=== PATIENT | male | born 1960 | race Caucasian/White ===

== ENCOUNTER → 2017-07-01 | Outpatient (CLI) | payer MEDICARE ==
[2015-10-15 10:04] VITALS: BMI 30.1
[~2017-07-01] MED LIST: ADV100/50 INH; ADV230RPT INH; ALB17R INH; ALB6.7R INH; AMLO-101 PO; AMLO2.5T74 PO; AMOX-559 PO; ASPI-715 PO; ASPI-757 PO; ASPI81TA94 PO; ATEN-1 PO; ATENOLOL PO; ATOR20TA22 PO; BUDE10.2 INH; BUPR1PAT9 TD; CARB-71 PO; CEF300 PO; CHOL10005 PO; CLOP75TA PO; CLOP75TA43 PO; CYCL-343 PO; CYCL10TA29 PO; DIAZ-308 PO; DICL-192 PO; DICL-195 PO; DOCU-416 PO; DULERAPT INH; FLUINH INH; FLUT12HF2 INH; FOLI-68 PO; HYDR-389 PO; HYDR-4240 PO; HYDR-4309 PO; HYDR473S4 PO; ICOS1CAP PO; IPRA3AMP21 IH; IPRA3AMP36 IH; IPRA4AER IH; LEV125 PO; LISI-362 PO; LISI-374 PO; LORA-629 PO; LORA-630 PO; MESA800T3 PO; METR1COM3 TP; MOM PO; MON10 PO; MONT10TA PO; MULT-1372 PO; NAPR-1043 PO; OMEG-11 PO; OMEP40CA45 PO; ONDA4TAB97 PO; ONDA8TAB94 PO; OXYC5CAP21 PO; PAN20 PO; PANT40TA63 PO; PER PO; PIMT TP; PRAM0.1225 PO; PRAM0.5T27 PO; PRAM0.7512 PO; PRE10 PO; PRE20 PO; PRED-1 PO; PREG25 PO; RANI-320 PO; RASA1TAB3 PO; SERT-181 PO; SERT25TA90 PO; SIL20 PO; STOOL SOFTNER; SULF-198 PO; SULF500T42 PO; TADA5TAB7 PO; TAMS0.4C70 PO; TEST200V IM; TRAM100T22 PO; TROS60CA PO; VENTOLIN IH; [UNRECOGNIZED DRUG - CODE] INH; [UNRECOGNIZED DRUG - CODE] PO; [UNRECOGNIZED DRUG - CODE] PO; [UNRECOGNIZED DRUG - OTHER] PO
== END ==
LOC: LAB 16:04
PROVIDERS: ATTEND Specialist
DX: N40.1 Benign prostatic hyperplasia with lower urinary tract symptoms (principal); E29.1 Testicular hypofunction
CPT/HCPCS: 36415; 84153

== ENCOUNTER → 2017-12-19 | Outpatient (CLI) | payer MEDICARE ==
[2015-10-15 10:04] VITALS: BMI 30.1
[~2017-12-19] MED LIST changes: -TRAM100T22 PO; +TRAM100T8 PO
--- NOTE | 2017-12-19 09:17 | RADIOLOGY IMAGING REPORT ---
FACILITY: [facility] PATIENT NAME: Julio Mcconnell : 1960 MR: [id number] V: [id number] EXAM DATE: ORDERING PHYSICIAN: [facility] TECHNOLOGIST: Location: [facility] Patient: Julio Mcconnell : 1960 Visit/Account:[id number] Date of Sevice: 12/19/2017 C SPINE W/O CONTRAST History: Numbness and weakness left arm. Previous neck injuries. COMPARISON STUDIES: none TECHNIQUE: Multi-planar, multi-sequence cervical spine MRI was performed without intravenous contras t administration. FINDINGS: Paraspinal soft tissues negative. Vertebral bodies have normal height. Marrow signal intensity appear s benign. 3 mm degenerative retrolisthesis C6 on C7, 2 mm retrolisthesis C5 on C6. Desiccation modera tely severe loss of disc space height C5-C6 C6-C7, moderate at C4-C5. Cervical and visualized thoraci c cord have normal signal intensity. C2-C3: Negative. C3-C4: Negative. C4-C5: Small central disc protrusion without significant narrowing of the central canal or neural for meredith. C5-C6: Broad-based disc bulge moderately narrows the central canal. There is severe right and moderat randy severe left foraminal stenosis. C6-C7: Broad-based disc bulge moderately narrows the central canal. There is severe right and moderat randy severe left foraminal stenosis. C7-T1: Negative. IMPRESSION: Multilevel spondylosis resulting in moderate central canal and moderate to severe foramin al stenosis at C5-C6 and C6-C7 with milder degenerative changes present at other levels as described above. Report Dictated By: Jeremiah Avalos MD at 12/19/2017 9:08 AM Report E-Signed By: Jeremiah Avalos MD at 12/19/2017 9:11 AM WSN:[email or web address]
== END ==
LOC: MRI 06:58
DX: M47.892 Other spondylosis, cervical region (principal); M48.02 Spinal stenosis, cervical region
CPT/HCPCS: 72141

== ENCOUNTER → 2018-03-21 | Outpatient (REF) | payer MEDICARE ==
[2015-10-15 10:04] VITALS: BMI 30.1
[~2018-03-21] MED LIST changes: +AMLO2.5T76 PO; +IPRA3AMP10 IH; -IPRA3AMP21 IH
== END ==
LOC: ZZSENDIN 16:10
PROVIDERS: ATTEND Family Medicine
DX: Z01.812 Encounter for preprocedural laboratory examination (principal)
CPT/HCPCS: 81001

== ENCOUNTER 2018-04-11 00:09 | Inpatient (IN) | payer MEDICARE ==
[2018-04-10 13:53] LABS: INR 0.95
[~2018-04-11] VITALS: Ht 177.8 cm; Wt 112.0 kg
[~2018-04-11 00:09] MED LIST changes: +ACET500T68 PO; +ATOR40TA24 PO
[2018-04-11] MEDS ORDERED: FAMOTIDINE 20 MG TAB PO ONE (05:50)
[2018-04-11] MEDS ORDERED: ceFAZolin(*) 2GM/D5W 50ML 50 ML IVPB ONE (06:15)
[2018-04-11] MEDS ORDERED: PREGABALIN 150 MG CAPSULE PO ONE (06:15)
[2018-04-11] MEDS ORDERED: CELECOXIB 200 MG CAP PO ONE (06:15)
[2018-04-11] MEDS ORDERED: ACETAMINOPHEN 500 MG TAB PO ONE (06:15)
[2018-04-11] MEDS ORDERED: cloNIDine EPIDUR INJ 100MCG/ML 40 MCG, ROPIVACAINE 0.5% 20 ML VIAL 25 ML, EPINEPHrine H... INJ ONE (06:15)
[2018-04-11] MEDS ORDERED: MIDAZOLAM 2 MG/2 ML VIAL IVP PRN (06:15)
[2018-04-11] MEDS ORDERED: NORMOSOL R SOLN(*) 1000 ML BAG 1,000 ML IV PRN ×2 (06:15→10:00)
[2018-04-11] MEDS ORDERED: LIDOCAINE/SOD BICARB 8.4% SYR ID ONE (06:15)
[2018-04-11] MEDS ORDERED: TRANEXAMIC AC 1000 MG/10ML SDV 1,000 MG in DEXTROSE 5% 50 ML BAG 50 ML IV ONE (06:15)
[2018-04-11 06:21] VITALS: BP 137/87
[2018-04-11] MEDS ORDERED: ALBUTEROL/IPRATROPIUM 3 ML NEB ONE (06:40)
[2018-04-11] MEDS ORDERED: PROPOFOL EMUL(*) 10MG/ML 20 ML 20 ML ONE (06:50)
[2018-04-11] MEDS ORDERED: ONDANSETRON 4 MG/2 ML VIAL ONE (06:50)
[2018-04-11] MEDS ORDERED: LIDOCAINE MPF 1% 5 ML VIAL ONE (06:50)
[2018-04-11] MEDS ORDERED: DEXAMETHASONE SOD 4 MG/ML VIAL ONE (06:50)
[2018-04-11] MEDS ORDERED: fentaNYL CITR 100 MCG/2 ML AMP ONE ×2 (06:50→09:59)
[2018-04-11] MEDS ORDERED: KETAMINE HCL-NS 50 MG/5 ML SYR ONE (06:54)
--- NOTE | 2018-04-11 07:43 | LEVENE H&P ---
DATE OF ADMISSION: April 11, 2018 IDENTIFICATION/CHIEF COMPLAINT The patient is a 57-year-old gentleman with a chief complaint of right knee pain. HISTORY OF PRESENT ILLNESS Patient has a longstanding history of knee arthritis progressively painful and debilitating, refractory to conservative care. Surgery is indicated to relieve symptoms after failure of nonoperative measures. PAST MEDICAL HISTORY 1. Coronary artery disease. 2. COPD. 3. Hypertension. 4. History of a spinal clot, no DVT. 5. History of sleep apnea. 6. History of bronchitis pneumonia. PAST SURGICAL HISTORY 1. Contralateral knee replacement. 2. MAST surgery. 3. Minor procedures. CURRENT MEDICATIONS 1. Atorvastatin 40 mg p.o. every day. 2. Levothyroxine 0.125 mg p.o. every day. 3. Aspirin 81 mg daily. 4. Azilect 1 mg p.o. every day. 5. Lisinopril 40 mg p.o. every day. 6. Lyrica 75 mg p.o. every day. 7. Oxygen 3L nightly. 8. Comtan 20 mg p.o. t.i.d. 9. Sinemet 50/200 two tablets p.o. every day. 10. Dulera 200 mcg/5mcg oral inhaler two puffs b.i.d. 11. Pantoprazole 40 mg two tablets p.o. b.i.d. 12. Proventil inhaler. 13. Ranitidine 300 mg at bedtime. 14. Singulair 10 mg p.o. every day. ALLERGIES MOLD, GRASS and COMMON WEEDS. No known drug allergies. FAMILY HISTORY Notable for mother with ovarian cancer and low thyroid, father with stroke and spinal cord thrombosis. SOCIAL HISTORY Negative for tobacco and alcohol use. REVIEW OF SYSTEMS Otherwise negative. PHYSICAL EXAMINATION GENERAL: This is a healthy appearing male. HEENT: Normocephalic, atraumatic. . NECK: Supple. LUNGS: Clear. HEART: Regular rate and rhythm. ABDOMEN: Soft. ORTHOPEDIC EXAMINATION Right knee has an effusion present. He has crepitus. He is stiff with range of motion. Gross stability. Good extension. Function is intact. Calves are nontender. Neurovascular function is intact. Radiographs demonstrate end-stage DJD. ASSESSMENT Right knee end-stage degenerative joint disease, progressively painful and debilitating, refractory to conservative care. PLAN Per patient request, we will proceed with total knee arthroplasty. The nature of this procedure, risks, benefits, the anticipated rehabilitative course were reviewed and all patient's questions were answered. Risks of the procedure include but are not limited to , major medical or anesthetic complication, infection, neurovascular injury, blood transfusion, stiffness, fracture, tendon rupture, instability, implant loosening or migration or failure, persistent or recurrent pain, need for additional surgery and other unforeseen. He understands and wishes to proceed. A signed permit is placed in the chart. No guarantees are given or implied. DAWN
[2018-04-11] MEDS ORDERED: VANCOMYCIN 1 GM VIAL ONE (08:53)
[2018-04-11] MEDS ORDERED: BISACODYL 10 MG SUPP PR PRN (10:00)
[2018-04-11] MEDS ORDERED: FLUSH 10 ML SYR IVP PRN (10:00)
[2018-04-11] MEDS ORDERED: BENZOCAINE/MENTHOL 1 EACH LOZG PO PRN (10:00)
[2018-04-11] MEDS ORDERED: diphenhydrAMINE 25 MG CAP PO PRN (10:00)
[2018-04-11] MEDS ORDERED: DIAZEPAM 5 MG TAB PO PRN (10:00)
[2018-04-11] MEDS ORDERED: PROMETHAZINE 25 MG/ML 1 ML AMP IVP PRN (10:00)
[2018-04-11] MEDS ORDERED: MAGNESIUM HYDROXIDE* 30ML UDCP PO PRN (10:00)
[2018-04-11] MEDS ORDERED: ZOLPIDEM TARTRATE 5 MG TAB PO PRN (10:00)
[2018-04-11] MEDS ORDERED: diphenhydrAMINE 50 MG/ML VIAL IVP PRN (10:00)
[2018-04-11] MEDS ORDERED: ACETAMINOPHEN 325 MG TAB PO PRN (10:00)
--- NOTE | 2018-04-11 10:33 | RADIOLOGY IMAGING REPORT ---
FACILITY: [facility] PATIENT NAME: Julio Mcconnell : 1960 MR: [id number] V: [id number] EXAM DATE: ORDERING PHYSICIAN: JJ VELIZ TECHNOLOGIST: [place] [facility] [place]: Julio Mcconnell : 1960 Visit/Account:[id number] Date of Sevice: 04/11/2018 Exam type: KNEE LIMITED RIGHT History: POST OP R TKA Comparison: None. Findings: Two views of the right knee demonstrate a right knee arthroplasty in good anatomic alignment. Soft t issue gas and skin maritza project over the anterior aspect of this postoperative knee IMPRESSION: 1. Right knee arthroplasty appears in good anatomic alignment Report Dictated By: Belinda Orozco MD at 04/11/2018 10:28 AM Report E-Signed By: Belinda Orozco MD at 04/11/2018 10:29 AM WSN:[email or web address]
[2018-04-11] MEDS ORDERED: TAMSULOSIN HCL 0.4 MG CAP PO ONE (11:45)
[2018-04-11] MEDS ORDERED: ALBUTEROL 8 GM INHALER INH PRN (11:45)
[2018-04-11] MEDS: LEVOTHYROXINE SOD 0.125 MG TAB PO SCH (11:52)
--- NOTE | 2018-04-11 12:08 | Hospitalist Consultation ---
History of Present Illness Requesting Physician Dr. Diana Reason for Consult Medical Management Chief Complaint s/p right total knee replacement History of Present Illness He was admitted s/p right total knee replacement . It is reported the surgery went well and without complication. History Problems: (1) NIKOLE (obstructive sleep apnea) Status: Chronic (2) HTN (hypertension) Status: Chronic (3) BPH (benign prostatic hyperplasia) Status: Chronic (4) Parkinson disease Status: Chronic (5) Parkinsons disease Status: Chronic Home Meds Reported Medications Acetaminophen (TYLENOL EXTRA STRENGTH) 500 Mg Tablet, 500 MG PO TID, TAB 04/04/18 Atorvastatin Calcium (LIPITOR) 40 Mg Tablet, 1 TAB PO HS, TAB 04/04/18 Pregabalin (LYRICA) 25 Mg Cap, 10 MG PO DAILY, CAP 10/07/15 Folic Acid (FOLIC ACID) 1 Mg Tablet, 1 MG PO QDAY, TAB 10/07/15 Testosterone Cypionate (TESTOSTERONE CYPIONATE) 200 Mg/1 Ml Vial, 200 MG IM Q2WK, VIAL 10/07/15 Diclofenac Sodium (DICLOFENAC SODIUM) 75 Mg Tablet.dr, 75 MG PO BID, TAB 10/07/15 Sertraline Hcl (SERTRALINE HCL) 25 Mg Tablet, 100 TAB PO DAILY, TAB 10/07/15 Pramipexole Di-Hcl (MIRAPEX) 0.5 Mg Tablet, 0.5 MG PO 5XD 10/07/15 Entacapone (COMTAN) 200 Mg Tab, 200 MG PO 6XD, TAB 12/05/14 Mometasone/Formoterol (DULERA 200 MCG/5 MCG INHALER) 13 Gm Inh, 2 PUFF INH BID, INH 12/05/14 Icosapent Ethyl (VASCEPA) 1 Gm Capsule, 2 CAP PO BID, CAPSULE 12/05/14 Mesalamine (ASACOL HD) 800 Mg Tablet.dr, 3 TAB PO DAILY 10/22/13 [Ventolin hfa 8 gm ] No Conflict Check, 2 PUFF IH Q2H PRN for respiratory distress 08/20/13 Metronidazole/Skin Cleanser (METROGEL 1% KIT) 1 Each Combo..pkg, 1 EACH TP BID 05/28/13 Pimecrolimus (ELIDEL) 30 Gm Cream..g., 1 RODOLFO TP BID 05/28/13 Levothyroxine Sodium (LEVOTHYROXINE SODIUM) 0.125 Mg Tab, 0.125 MG PO QDAY, TAB 05/28/13 Pantoprazole Sodium (PROTONIX) 40 Mg Tablet.dr, 40 MG PO BID, TAB.SR 05/28/13 Ranitidine Hcl (RANITIDINE HCL) 300 Mg Tablet, 300 MG PO HS 05/28/13 Tadalafil (CIALIS) 5 Mg Tablet, 5 MG PO QDAY 05/28/13 Trospium Chloride (TROSPIUM CHLORIDE) 60 Mg Cap.er.24h, 60 MG PO DAILY 05/28/13 Rasagiline Mesylate (AZILECT) 1 Mg Tablet, 1 MG PO DAILY 05/28/13 Carbidopa/Levodopa (SINEMET CR 50-200 TABLET) 1 Each Tablet.er, 1 EACH PO HS 05/28/13 Carbidopa/Levodopa (SINEMET 25-100 MG TABLET) 1 Each Tablet, 2.5 EACH PO QID 05/28/13 Montelukast Sodium (SINGULAIR) 10 Mg Tablet, 1 TAB PO HS TAKE ONE TABLET BY MOUTH EVERY NIGHT 05/28/13 Lisinopril (LISINOPRIL) 40 Mg Tablet, 40 MG PO QDAY HOLD UNTIL SBP > 140 05/28/13 Discontinued Reported Medications Acetaminophen/Hydrocodone (HYDROCODON-ACETAMINOPH 7.5-325) 1 Each Ea, 1-2 EACH PO Q4-6H PRN for PAIN, #100 EA 10/16/15 Aspirin (ASPIRIN) 325 Mg Tablet, 325 MG PO DAILY, TAB take for one month post op 10/16/15 Cyclobenzaprine Hcl (CYCLOBENZAPRINE HCL) 10 Mg Tablet, 10 MG PO HS PRN for PAIN, #9 TAB 10/07/15 Diazepam (DIAZEPAM) 5 Mg Tablet, 5 MG PO QHS, #5 TAB 12/05/14 Buprenorphine (BUTRANS) 1 Each Patch.tdwk, 1 EACH TD QWEEK 12/05/14 Allergies: Coded Allergies: gluten (Verified Allergy, Mild, 04/04/18) Uncoded Allergies: BERRIES (Allergy, Mild, 01/22/11) Patient History: DVT FATHER FH: heart disease FATHER FH: ovarian cancer MOTHER FH: stroke FATHER Hx Smoking: No Smoking Status: Never Smoker Exposure to Second Hand Smoke?: No Caffeine Intake: Coffee Caffeine/Cups Per Day: 1-2 cups a day Hx Alcohol Use: Yes Hx Substance Use Disorder: No Social Drug Use: Never History of IV Drug Use: No Review of Systems All Systems Reviewed/Normal: Yes, Except as Noted Exam Vital Signs Vital Signs Date Time Temp Pulse Resp B/P (MAP) Pulse Ox O2 Delivery O2 Flow Rate FiO2 04/11/18 11:10 61 20 97 04/11/18 06:43 Room Air 04/11/18 06:21 97.5 137/87 (104) General Appearance: Alert, Awake, No Acute Distress, Afebrile Neuro: No Gross deficits Cardiovascular: Regular Rate and Rhythm Respiratory: No Respiratory Distress, Clear to Auscultation GI: Abd Soft and Non-Tender Psych: Alert & Oriented X3, Appropriate Mood & Affect Assessment and Plan Problems: (1) Status post total right knee replacement Status: Acute Assessment & Plan: He will be placed on Aspirin for DVT prophylaxis. He has no history of DVT or PE. (2) Asthma Status: Chronic Assessment & Plan: He is on chronic treatment with Singulair, albuterol and Dulera inhalers. (3) HTN (hypertension) Status: Chronic Assessment & Plan: He is on chronic treatment with Lisinopril. This has been restarted with hold parameters. (4) Parkinsons disease Status: Chronic Assessment & Plan: He is on chronic treatment with Sinemet. (5) NIKOLE (obstructive sleep apnea) Status: Chronic Assessment & Plan: He is on chronic treatment with CPAP. He did bring his machine to use during admission. (6) BPH (benign prostatic hyperplasia) Status: Chronic Assessment & Plan: He is on chronic treatment with Flomax. (7) Hypothyroidism Status: Chronic Assessment & Plan: He is on chronic treatment with Levothyroxine. Venous Thromboembolism Antithrombotics Is Pt On Any Antithrombotics?: No Problem Qualifiers (1) HTN (hypertension): Hypertension type: essential hypertension Qualified Codes: I10 - Essential (primary) hypertension IZZY WALSHP Apr 11, 2018 12:08
[2018-04-11] MEDS ORDERED: PREG50CA48 PO (12:31)
[2018-04-11] MEDS: APAP/HYDROCODONE 325/7.5 TAB PO PRN (12:58)
[2018-04-11] MEDS: ENTACAPONE 200 MG TAB PO SCH ×3 (13:31→21:00)
[2018-04-11] MEDS: CARBIDOPA/LEVODOPA 25/100 TAB PO SCH ×3 (13:31→21:00)
[2018-04-11] MEDS: PRAMIPEXOLE DIHYDROCHL 0.25 MG PO SCH ×3 (14:23→21:26)
[2018-04-11 15:16] VITALS: Ht 177.8 cm; Wt 112.0 kg
[2018-04-11] MEDS: MOMETASONE/FORMOT 200MCG/5 MCG IH SCH (17:02)
[2018-04-11] MEDS: CELECOXIB 200 MG CAP PO SCH (17:26)
[2018-04-11] MEDS: ceFAZolin(*) 1 GM VIAL 1 GM in NS(*) 0.9% 100 ML ADDVANT BAG 100 ML IVPB SCH (17:27)
[2018-04-11 19:53] VITALS: BP 112/73
[2018-04-11] MEDS: PIMECROLIMUS 1% TP SCH (21:00)
[2018-04-11] MEDS ORDERED: [UNRECOGNIZED DRUG - OTHER] INH SCH (21:00)
[2018-04-11] MEDS: ATORVASTATIN 40 MG TAB PO SCH (21:00)
[2018-04-11] MEDS: PANTOPRAZOLE SOD 40 MG TABEC PO SCH (21:00)
[2018-04-11] MEDS: MONTELUKAST SODIUM 10 MG TAB PO SCH (21:00)
[2018-04-11] MEDS ORDERED: FORMOTEROL INH SCH (21:00)
[2018-04-11] MEDS ORDERED: MOMETASONE INH SCH (21:00)
[2018-04-11] MEDS: CARBIDOPA PO SCH (21:24)
[2018-04-11] MEDS: LEVODOPA PO SCH (21:24)
[2018-04-11] MEDS: PREGABALIN 25 MG CAP PO SCH (21:25)
[2018-04-11] MEDS: RANITIDINE HCL 150 MG TAB PO SCH (21:25)
--- NOTE | 2018-04-11 22:42 | OPERATIVE REPORT 1 ---
EVENT DATE: April 11, 2018 SURGEON: Bartolo Diana MD ANESTHESIOLOGIST: Ab Musa MD ANESTHESIA: General plus spinal. BELT NOTCHER: Jose Solano PA-C PREOPERATIVE DIAGNOSIS Right knee degenerative joint disease. POSTOPERATIVE DIAGNOSIS Right knee degenerative joint disease. PROCEDURE PERFORMED Right total knee arthroplasty. ESTIMATED BLOOD LOSS Minimal. DRAINS None. SPECIMENS None. COMPLICATIONS None apparent. TOURNIQUET TIME 44 minutes IMPLANTS USED SynGen Triathlon knee system with 5 right PS femur, 6 standard tibial baseplate, 36 mm universal, cemented, all-polyethylene patellar button, and a 16 mm PS tibial tray liner. INDICATIONS Julio is a 57-year-old gentleman with intractable pain and disability related to end-stage knee arthritis. Surgery is indicated to relieve pain and improve function after failure of nonoperative measures. DESCRIPTION OF PROCEDURE Patient taken to the operating room and placed supine on the operating table. Spinal block is administered by the anesthesiologist. General anesthesia is induced. Antibiotics and TXA are administered IV. Right lower extremity is prepped and draped in the usual sterile fashion for orthopedic surgery. Limb is exsanguinated with an Esmarch bandage. Tourniquet inflated to 275 mmHg. Midline longitudinal incision made, carried down through the skin and subcutaneous tissue to the extensor mechanism. Full-thickness flaps are developed far enough medially to allow medial parapatellar arthrotomy be performed. Patella is everted. Knee is brought into the flexed position. Fat pad, anterior horns of the menisci, and the cruciate ligaments are debrided. A subperiosteal medial release is initiated in a titrated fashion to start to balance the deformity. A step drill is used to enter the distal femur. A 10- inch long alignment guide is used to engage the isthmus, cut set for 5 degrees of valgus relative to the anatomic axis. The 10 mm resection block is applied, pinned, and cuts made with an oscillating saw. AP sizing guide is applied to the distal femoral cut, positioned for 3 degrees of external rotation relative to the posterior condyles. Size 5 is optimal without risk of notching. The four-in-one cutting block is applied. Anterior, posterior, posterior chamfer, and anterior chamfer cuts are made respectively. PS block is applied and centered. Medial and lateral bone is removed through the box. Trial femur has nice [id number] fit. Attention is turned to tibial preparation. Extramedullary guide is applied, positioned for varus, valgus, posterior slope, and rotation. This is set to resect 9 mm from the relatively intact lateral tibial plateau. It is dropped down a couple millimeters to ensure an adequate cut. Block is pinned. Extramedullary alignment check is made, and the cuts made with an oscillating saw. Osteophytes and debris are removed from the joint. The gaps are balanced and symmetric at this point with no additional releases required. The size 6 tibial baseplate provides optimum bony coverage without soft tissue overhang. It is inserted along with the trial liner and the trial femur. Knee is brought to extension. The patella is taken from a starting thickness of 25 to a residual of 15 with a patellar clamp and oscillating saw. The size 36 provides optimum bony coverage without soft tissue overhang. Lug holes are drilled. Patella tracks nicely with the no-touch technique. Final tibial preparation consists of assuring appropriate rotational and translational positioning of the component. The boss is reamed. Fin is punched. Surfaces are copiously lavaged. Meticulous hemostasis is assured. Components are cemented in a single stage. Once the cement is fully polymerized, tourniquet is deflated. Hemostasis is assured. The various liners are selected. The 16 PS tibial tray liner provides optimal soft tissue tension, filling up the gap, allowing the knee to drop to full extension without hyperextension, providing optimal stability. Tray is lavaged and dried. The liner is locked into the baseplate. The joint is reduced. Arthrotomy is closed in flexion with #2 Ethibond, subcutaneous tissue with 3-0 Vicryl, skin with surgical maritza. Xeroform and 4 x 4's applied as a dry, sterile dressing and compression wrap. The patient was awakened from anesthesia and taken to the recovery room in stable condition having tolerated the procedure well. Plan is for standard TKA rehab protocol. [facility]
[2018-04-12] MEDS: ceFAZolin(*) 1 GM VIAL 1 GM in NS(*) 0.9% 100 ML ADDVANT BAG 100 ML IVPB SCH ×2 (00:25→08:40)
[2018-04-12 00:36] VITALS: BP 112/73
[2018-04-12 02:45] VITALS: BP 127/84
[2018-04-12] MEDS: MOMETASONE/FORMOT 200MCG/5 MCG IH SCH ×2 (05:43→17:07)
[2018-04-12] MEDS: LEVOTHYROXINE SOD 0.125 MG TAB PO SCH (05:51)
[2018-04-12] MEDS: PRAMIPEXOLE DIHYDROCHL 0.25 MG PO SCH ×5 (05:52→20:58)
[2018-04-12] MEDS: APAP/HYDROCODONE 325/7.5 TAB PO PRN ×4 (06:27→20:58)
[2018-04-12 07:59] VITALS: BP 137/99
[2018-04-12] MEDS: PIMECROLIMUS 1% TP SCH ×2 (08:40→21:00)
[2018-04-12] MEDS: TAMSULOSIN HCL 0.4 MG CAP PO SCH (08:40)
[2018-04-12] MEDS: CELECOXIB 200 MG CAP PO SCH ×2 (08:40→17:21)
[2018-04-12] MEDS: ASPIRIN 325 MG TAB PO SCH (08:40)
[2018-04-12] MEDS: PANTOPRAZOLE SOD 40 MG TABEC PO SCH ×2 (08:40→21:00)
[2018-04-12] MEDS: PREGABALIN 25 MG CAP PO SCH ×2 (08:41→20:55)
[2018-04-12] MEDS ORDERED: LISINOPRIL 20 MG TAB PO SCH (09:00)
[2018-04-12] MEDS ORDERED: SERTRALINE HCL 50 MG TAB PO SCH (09:00)
[2018-04-12] MEDS: ENTACAPONE 200 MG TAB PO SCH ×4 (09:22→20:54)
[2018-04-12] MEDS: CARBIDOPA/LEVODOPA 25/100 TAB PO SCH ×4 (09:22→21:00)
[2018-04-12 10:54] VITALS: BP 155/88
--- NOTE | 2018-04-12 11:04 | Hospitalist Progress Note ---
Subjective Progress Notes Subjective He has no complaints this morning. He had no acute events overnight. Patient Complains of: Cardiovascular: No: Chest Pain Respiratory: No: Shortness of Breath Physical Exam Vital Signs Date Time Temp Pulse Resp B/P (MAP) Pulse Ox O2 Delivery O2 Flow Rate FiO2 04/12/18 10:54 98.8 71 18 155/88 (110) 92 Nasal Cannula 1.0 Intake and Output 04/12/18 07:00 Intake Total 4576 ml Balance 4576 ml Intake Oral 776 ml IV Total 1900 ml Other 1900 ml # Voids 1 General Appearance: Alert, Awake, No Acute Distress, Afebrile Neuro: No Gross deficits Cardiovascular: Regular Rate and Rhythm Respiratory: No Respiratory Distress, Clear to Auscultation Psych: Alert & Oriented X3, Appropriate Mood & Affect Assessment and Plan Problems: (1) Status post total right knee replacement Status: Acute Assessment & Plan: He will be placed on Aspirin for DVT prophylaxis. He has no history of DVT or PE. (2) Asthma Status: Chronic Assessment & Plan: He is on chronic treatment with Singulair, albuterol and Dulera inhalers. (3) HTN (hypertension) Status: Chronic Assessment & Plan: He is on chronic treatment with Lisinopril. This has been restarted with hold parameters. (4) Parkinsons disease Status: Chronic Assessment & Plan: He is on chronic treatment with Sinemet. (5) NIKOLE (obstructive sleep apnea) Status: Chronic Assessment & Plan: He is on chronic treatment with CPAP. He did bring his machine to use during admission. (6) BPH (benign prostatic hyperplasia) Status: Chronic Assessment & Plan: He is on chronic treatment with Flomax. (7) Hypothyroidism Status: Chronic Assessment & Plan: He is on chronic treatment with Levothyroxine. Exam Sepsis Risk: No Definite Risk Problem Qualifiers (1) HTN (hypertension): Hypertension type: essential hypertension Qualified Codes: I10 - Essential (primary) hypertension IZZY WALSH Apr 12, 2018 11:04
[2018-04-12 14:29] VITALS: BP 152/99
[2018-04-12] MEDS: ATORVASTATIN 40 MG TAB PO SCH (20:54)
[2018-04-12] MEDS: RANITIDINE HCL 150 MG TAB PO SCH (20:56)
[2018-04-12] MEDS: MONTELUKAST SODIUM 10 MG TAB PO SCH (20:57)
[2018-04-12] MEDS: CARBIDOPA PO SCH (20:57)
[2018-04-12] MEDS: LEVODOPA PO SCH (20:57)
[2018-04-13] MEDS: APAP/HYDROCODONE 325/7.5 TAB PO PRN ×2 (01:07→06:20)
[2018-04-13 01:10] VITALS: BP 157/87
[2018-04-13] MEDS: PRAMIPEXOLE DIHYDROCHL 0.25 MG PO SCH ×2 (05:47→10:01)
[2018-04-13] MEDS: LEVOTHYROXINE SOD 0.125 MG TAB PO SCH (05:47)
[2018-04-13] MEDS: MOMETASONE/FORMOT 200MCG/5 MCG IH SCH (05:48)
[2018-04-13 07:33] VITALS: BP 136/88
[2018-04-13] MEDS ORDERED: HYDR-4308 PO (08:56)
[2018-04-13] MEDS: CARBIDOPA/LEVODOPA 25/100 TAB PO SCH (08:56)
[2018-04-13] MEDS: PANTOPRAZOLE SOD 40 MG TABEC PO SCH (08:56)
[2018-04-13] MEDS: ENTACAPONE 200 MG TAB PO SCH (08:56)
[2018-04-13] MEDS: TAMSULOSIN HCL 0.4 MG CAP PO SCH (08:56)
[2018-04-13] MEDS: CELECOXIB 200 MG CAP PO SCH (08:57)
[2018-04-13] MEDS: ASPIRIN 325 MG TAB PO SCH (08:57)
[2018-04-13] MEDS: PREGABALIN 25 MG CAP PO SCH (08:58)
[2018-04-13] MEDS: PIMECROLIMUS 1% TP SCH (08:58)
[2018-04-13] MEDS ORDERED: LISINOPRIL 20 MG TAB PO ONE (09:00)
[2018-04-13] MEDS ORDERED: ASPI-757 PO (09:06)
--- NOTE | 2018-04-13 11:26 | Hospitalist Progress Note ---
Subjective Progress Notes Subjective He has no complaints this morning. He had no acute events overnight. Patient Complains of: Cardiovascular: No: Chest Pain Respiratory: No: Shortness of Breath Physical Exam Vital Signs Date Time Temp Pulse Resp B/P (MAP) Pulse Ox O2 Delivery O2 Flow Rate FiO2 04/13/18 07:41 90 04/13/18 07:41 Room Air 04/13/18 07:33 98.8 71 16 136/88 (104) 04/12/18 10:54 1.0 Intake and Output 04/13/18 06:59 Intake Total 890 ml Balance 890 ml Intake Oral 790 ml IV Total 100 ml # Voids 2 General Appearance: Alert, Awake, No Acute Distress, Afebrile Neuro: No Gross deficits Cardiovascular: Regular Rate and Rhythm Respiratory: No Respiratory Distress, Clear to Auscultation GI: Soft and Non-Tender Psych: Alert & Oriented X3, Appropriate Mood & Affect Assessment and Plan Problems: (1) Status post total right knee replacement Status: Acute Assessment & Plan: He will be placed on Aspirin for DVT prophylaxis. He has no history of DVT or PE. (2) Asthma Status: Chronic Assessment & Plan: He is on chronic treatment with Singulair, albuterol and Dulera inhalers. (3) HTN (hypertension) Status: Chronic Assessment & Plan: He is on chronic treatment with Lisinopril. This has been restarted with hold parameters. (4) Parkinsons disease Status: Chronic Assessment & Plan: He is on chronic treatment with Sinemet. (5) NIKOLE (obstructive sleep apnea) Status: Chronic Assessment & Plan: He is on chronic treatment with CPAP. He did bring his machine to use during admission. (6) BPH (benign prostatic hyperplasia) Status: Chronic Assessment & Plan: He is on chronic treatment with Flomax. (7) Hypothyroidism Status: Chronic Assessment & Plan: He is on chronic treatment with Levothyroxine. Exam Sepsis Risk: No Definite Risk Problem Qualifiers (1) HTN (hypertension): Hypertension type: essential hypertension Qualified Codes: I10 - Essential (primary) hypertension IZZY WALSH ANIMAL REHABILITATOR Apr 13, 2018 11:26
[2018-04-14] MEDS ORDERED: LISINOPRIL 20 MG TAB PO SCH (09:00)
== END 2018-04-13 11:15 | disposition home or self-care (01) | DRG 470 ==
LOC: OR 00:09 → MED 11:15
PROVIDERS: ADMIT Orthopaedic Surgery; ATTEND Orthopaedic Surgery
PROC: 0SRC0J9 Replacement of Right Knee Joint with Synthetic Substitute, Cemented, Open Approach (ICD-10-PCS; principal; 2018-04-11 07:14)
DX: M17.11 Unilateral primary osteoarthritis, right knee (principal); M25.761 Osteophyte, right knee; I25.10 Atherosclerotic heart disease of native coronary artery without angina pectoris; J44.9 Chronic obstructive pulmonary disease, unspecified; I10 Essential (primary) hypertension; I27.20 Pulmonary hypertension, unspecified; G47.33 Obstructive sleep apnea (adult) (pediatric); K21.9 Gastro-esophageal reflux disease without esophagitis; N40.0 Benign prostatic hyperplasia without lower urinary tract symptoms; G20 Parkinson's disease; E03.9 Hypothyroidism, unspecified; Z99.81 Dependence on supplemental oxygen; Z96.652 Presence of left artificial knee joint; Z85.828 Personal history of other malignant neoplasm of skin
CPT/HCPCS: 36415; 85610; 86850; 86900; 86901; 94640; 94660; 97161; C1713; C1776; J0171; J0690; J0735; J1100; J1885; J2001; J2250; J2405; J2550; J2704; J2795; J3010; J3370; J3490; J3535; J7050; J7060

== ENCOUNTER → 2018-04-24 | Outpatient (CLI) | payer MEDICARE ==
[2018-04-11 15:16] VITALS: BMI 35.4
[~2018-04-24] MED LIST changes: -HYDR-4309 PO; +HYDR-653 PO; +HYDR-654 PO; +PREG50CA48 PO
--- NOTE | 2018-04-24 15:12 | RADIOLOGY IMAGING REPORT ---
[facility] PATIENT NAME: Julio Mcconnell : 1960 MR: [id number] V: [id number] EXAM DATE: ORDERING PHYSICIAN: JJ VELIZ TECHNOLOGIST: Location: [facility] Patient: Julio Mcconnell : 1960 Visit/Account:[id number] Date of Sevice: 04/24/2018 EXAMINATION: VENOUS DOPP LOW RIGHT EXTREMITY COMPARISON: None Available HISTORY: Right leg pain and swelling. FINDINGS: Standard right lower extremity Doppler ultrasound with color flow and spectral analysis is performed. The common femoral, femoral, and popliteal veins are widely patent and compress appropriately. The v isualized calf veins and the proximal greater saphenous vein are patent. No popliteal fluid collection. The contralateral common femoral vein is patent. IMPRESSION: No right lower extremity deep venous thrombosis. Report Dictated By: Isidoro Mchugh MD at 04/24/2018 3:07 PM Report E-Signed By: Isidoro Mchugh MD at 04/24/2018 3:08 PM WSN:[email or web address]
== END ==
LOC: US 14:00
PROVIDERS: ATTEND Orthopaedic Surgery
DX: M79.661 Pain in right lower leg (principal); R22.41 Localized swelling, mass and lump, right lower limb; Z98.890 Other specified postprocedural states